=== PATIENT | male | born 1990 | race Caucasian/White ===

== ENCOUNTER 2022-02-21 12:14 | Emergency (ER) | payer SELFPAY ==
[~2022-02-21] VITALS: Ht 180.3 cm; Wt 70.5 kg
[2022-02-21 12:22] VITALS: TEMP 98
[2022-02-21] MEDS ORDERED: NORCO 325 MG-51 TAB PO (14:02)
[2022-02-21] MEDS ORDERED: CRUTCHES MC (14:09)
[2022-02-21 14:14] VITALS: BP 130/95; PULSE 75
== END 2022-02-21 14:15 | disposition home or self-care (01) ==
LOC: COL.ER 12:14
DX: S92.001A Unspecified fracture of right calcaneus, initial encounter for closed fracture (principal); F17.290 Nicotine dependence, other tobacco product, uncomplicated; Z28.310 Unvaccinated for COVID-19; X50.1XXA Overexertion from prolonged static or awkward postures, initial encounter; Y93.39 Activity, other involving climbing, rappelling and jumping off